=== PATIENT | female | born 1995 | race Asian ===

== ENCOUNTER 2023-02-15 07:30 | Outpatient (RCR) | payer OTHER, SELFPAY ==
--- NOTE | 2023-02-08 14:53 | OT.OP.EVAL ---
Visit Care Team Role Provider Type Joshua You DO Attending Provider Non-Staff Primary Care Provider Referring Provider Specialty: Family Practice Address: [address] [place] [address], [id number] Email: Occupational Therapy Initial Evaluation OT Outpatient Adult Evaluation Start: 02/08/23 10:42 Freq: Status: Active Protocol: Document 02/08/23 10:43 AMS (Rec: 02/08/23 10:46 AMS [id number]) General Information - Adult Plan of Care Dates 02/08/23 - 03/15/23 Insurance Information Prime; EVAL CHARGE ONLY; x 12 visits auth; Visit Start Time 07:40 Visit Stop Time 08:15 Total Visit Minutes 35 Treatment Setting Outpatient Care Note Type Initial Evaluation Referring Physician Joshua You MD Reason for Referral Bilateral wrist pain w/ h/o CTS Identification Confirmed Yes Identification Confirmed By Self Goals Alf Goals 1. Joel Gilmore will be modified independent with execution of distal UE home exercise program. 2. Joel Gilmore will present with improved ability to participate in meaningful activities: 2a. This will be evidenced by obtaining a score of 15.00 or less on the QuickDASH UE Outcome Measure. 2b. This will be evidenced by obtaining a score of 10.00 or less on the QuickDASH UE Work Module. 2c. This will be evidenced by Joel Gilmore indicating 2 or less out of 10 on Pain Assessment Grid relative to distal UEs. 3. Joel Gilmore will present with improved bilateral wrist strength which support participation in meaningful tasks/activities: 3a. 5/5 MMT R wrist flex. 3b. 5/5 MMT L wrist flex. 3c. 5/5 MMT L wrist ext. 3d. 5/[address] 3e. 5/5 MMT L wrist UD. Assessment/Plan Treatment Assessment Joel Gilmore is a 27 year-old right hand dominant female referred to outpatient OT secondary to bilateral wrist pain w/ h/o CTS. Medical History Form was completed w/ no significant history. 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 Reported right handed mouse use and standard computer/ keyboard set-up. QuickDASH UE Outcome Measure Score = 25.00; QuickDASH UE Work Module Score = 18.75. Indication of 5 out of 10 on the Pain Assessment Grid relative to dorsal ulnar surfaces of bilateral wrists. Report of bilateral wrist braces used primarily for compression. AROM Goniometer Measurements were as follows: 0-70 degrees active R wrist flex vs 0-65 degrees active L wrist flex; 0 -65 degrees active R wrist ext vs 0-60 degrees active L wrist ext; 0-15 degrees active R wrist RD vs 0-17 degrees active L wrist RD; 0-30 degrees active R wrist UD vs 0 -30 degrees active L wrist UD. MMT Findings were as follows: 4+/5 MMT R wrist flex vs 3+/ 5 MMT L wrist flex. 5/5 MMT R wrist ext vs 3+/5 MMT L wrist ext; 5/[address] vs 3+/ [address]; 5/5 MMT R wrist UD vs 3+/5 MMT L wrist UD. 36.0# of force R relief captain ( compared to 74.5# +/- 13.9 women 25-29 years of age) vs 37.0# of force L relief captain ( compared to 63.5# +/- 12.2 women 25-29 years of age) w/ dynamometer II strength testing w/ elbow in 90 degrees flexion. 24.0# of force R relief captain vs 32.0# of force L relief captain w/ dynamometer II strength testing w/ elbow in extension. 6.0# of force R lateral pinch (compared to 17.7# +/- 2.1 women 25-29 years of age) vs 6 .0# of force L lateral pinch ( compared to 16.6# +/- 2.1 women 25-29 years of age). 6.0 # of force R 3-jaw pinch ( compared to 17.7# +/- 3.2 women 25-29 years of age) vs 7 .0# of force L 3-jaw pinch ( compared to 17.0# +/- 3.0 women 25-29 years of age). 5.0 # of force R tip pinch ( compared to 11.9# +/- 1.8 women 25-29 years of age) vs 4 .5# of force L tip pinch ( compared to 11.3# +/- 1.8 women 25-29 years of age). (-) bilateral Tinel's test. Report of numbness and tingling of bilateral 3, 4, 5th digits w/ reverse phalen's test. Denial of discomfort w/ tendon glides bilaterally. Outpatient OT is recommended to establish HEP and address environmental/modification techniques/strategies, pain/ discomfort of bilateral wrists , hand/digit/wrist weakness to support Young Ju's ability to successfully complete/engage in meaningful activities in a variety of environments. Home Exercise Program 02/08/23 = Instructed in passive wrist stretches; wrist flex, wrist ext w/ elbow in ext and forearm in supination w/ hold of 20 to 30 seconds. Length of treatment (weeks) 5 Plan of Care Start Date 02/08/23 Plan of Care End Date 03/15/23 Treatment Frequency Once a Week Therapeutic Contents Active Range of Motion, Adaptive Equipment Education, Client Education,Functional Activities,Home Exercise Program,Joint Protection, Manual Therapy,Education,Self- Care,Stretching/Flexibility Activities,Therapeutic Activities,Therapeutic Exercises,Modalities Additional Types of Modalities Heat/Cold Pack/Contrast baths
--- NOTE | 2023-02-15 08:38 | OT.OP.DC ---
Visit Care Team Role Provider Type Joshua You DO Attending Provider Non-Staff Primary Care Provider Referring Provider Address: [address] [place] [address], [id number] Email: OT Outpatient OT Outpatient Adult Evaluation Start: 02/08/23 10:42 Freq: Status: Active Protocol: Document 02/08/23 10:43 AMS (Rec: 02/08/23 10:46 AMS [id number]) General Information - Adult Visit Information Plan of Care Dates 02/08/23 - 03/15/23 Insurance Information Prime; EVAL CHARGE ONLY; x 12 visits auth; Session Time Visit Start Time 07:40 Visit Stop Time 08:15 Total Visit Minutes 35 Setting Treatment Setting Outpatient Care Visit Type Note Type Initial Evaluation Referral Referring Physician Joshua You MD Reason for Referral Bilateral wrist pain w/ h/o CTS Identification Identification Confirmed Yes Identification Confirmed By Self Goals Usp Goals Technical Service Rep Goals 1. Joel Gilmore will be modified independent with execution of distal UE home exercise program. 2. Joel Gilmore will present with improved ability to participate in meaningful activities: 2a. This will be evidenced by obtaining a score of 15.00 or less on the QuickDASH UE Outcome Measure. 2b. This will be evidenced by obtaining a score of 10.00 or less on the QuickDASH UE Work Module. 2c. This will be evidenced by Joel Gilmore indicating 2 or less out of 10 on Pain Assessment Grid relative to distal UEs. 3. Joel Gilmore will present with improved bilateral wrist strength which support participation in meaningful tasks/activities: 3a. 5/5 MMT R wrist flex. 3b. 5/5 MMT L wrist flex. 3c. 5/5 MMT L wrist ext. 3d. 5/[address] 3e. 5/5 MMT L wrist UD. Assessment/Plan Assessment Treatment Assessment Joel Gilmore is a 27 year-old right hand dominant female referred to outpatient OT secondary to bilateral wrist pain w/ h/o CTS. Medical History Form was completed w/ no significant history. 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 Reported right handed mouse use and standard computer/ keyboard set-up. QuickDASH UE Outcome Measure Score = 25.00; QuickDASH UE Work Module Score = 18.75. Indication of 5 out of 10 on the Pain Assessment Grid relative to dorsal ulnar surfaces of bilateral wrists. Report of bilateral wrist braces used primarily for compression. AROM Goniometer Measurements were as follows: 0-70 degrees active R wrist flex vs 0-65 degrees active L wrist flex; 0 -65 degrees active R wrist ext vs 0-60 degrees active L wrist ext; 0-15 degrees active R wrist RD vs 0-17 degrees active L wrist RD; 0-30 degrees active R wrist UD vs 0 -30 degrees active L wrist UD. MMT Findings were as follows: 4+/5 MMT R wrist flex vs 3+/ 5 MMT L wrist flex. 5/5 MMT R wrist ext vs 3+/5 MMT L wrist ext; 5/[address] vs 3+/ [address]; 5/5 MMT R wrist UD vs 3+/5 MMT L wrist UD. 36.0# of force R solar lab technician ( compared to 74.5# +/- 13.9 women 25-29 years of age) vs 37.0# of force L solar lab technician ( compared to 63.5# +/- 12.2 women 25-29 years of age) w/ dynamometer II strength testing w/ elbow in 90 degrees flexion. 24.0# of force R solar lab technician vs 32.0# of force L solar lab technician w/ dynamometer II strength testing w/ elbow in extension. 6.0# of force R lateral pinch (compared to 17.7# +/- 2.1 women 25-29 years of age) vs 6 .0# of force L lateral pinch ( compared to 16.6# +/- 2.1 women 25-29 years of age). 6.0 # of force R 3-jaw pinch ( compared to 17.7# +/- 3.2 women 25-29 years of age) vs 7 .0# of force L 3-jaw pinch ( compared to 17.0# +/- 3.0 women 25-29 years of age). 5.0 # of force R tip pinch ( compared to 11.9# +/- 1.8 women 25-29 years of age) vs 4 .5# of force L tip pinch ( compared to 11.3# +/- 1.8 women 25-29 years of age). (-) bilateral Tinel's test. Report of numbness and tingling of bilateral 3, 4, 5th digits w/ reverse phalen's test. Denial of discomfort w/ tendon glides bilaterally. Outpatient OT is recommended to establish HEP and address environmental/modification techniques/strategies, pain/ discomfort of bilateral wrists , hand/digit/wrist weakness to support Joel Gilmore's ability to successfully complete/engage in meaningful activities in a variety of environments. Home Exercise Program 02/08/23 = Instructed in passive wrist stretches; wrist flex, wrist ext w/ elbow in ext and forearm in supination w/ hold of 20 to 30 seconds. Plan Length of treatment (weeks) 5 Plan of Care Start Date 02/08/23 Plan of Care End Date 03/15/23 Treatment Frequency Once a Week Therapeutic Contents Active Range of Motion, Adaptive Equipment Education, Client Education,Functional Activities,Home Exercise Program,Joint Protection, Manual Therapy,Education,Self- Care,Stretching/Flexibility Activities,Therapeutic Activities,Therapeutic Exercises,Modalities Additional Types of Modalities Heat/Cold Pack/Contrast baths Functional Wrist/Hand Scan Hand Side Sensory Assessment Sensory Profile2 OT Outpatient Treatment Note - Adult Start: 02/08/23 10:42 Freq: Status: Active Protocol: Document 02/15/23 08:26 [facility] (Rec: 02/15/23 08:30 [facility] [id number]) OT Outpatient Adult Treatment Note Session Time Visit Start Time 07:30 Visit Stop Time 08:15 Total Visit Minutes 45 Visit Information Visit Number [id number] Plan of Care Dates 02/08/23 - 03/15/23 Insurance Information Prime; EVAL CHARGE ONLY; x 12 visits auth; Setting Treatment Setting Outpatient Care Visit Type Note Type Treatment Note General Information General Information Joel Gilmore is a 27 year-old right hand dominant female referred to outpatient OT secondary to bilateral wrist pain w/ h/o CTS. Medical History Form was completed w/ no significant history. 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 Reported right handed mouse use and standard computer/ keyboard set-up. QuickDASH UE Outcome Measure Score = 25.00; QuickDASH UE Work Module Score = 18.75. Indication of 5 out of 10 on the Pain Assessment Grid relative to dorsal ulnar surfaces of bilateral wrists. Report of bilateral wrist braces used primarily for compression. AROM Goniometer Measurements were as follows: 0-70 degrees active R wrist flex vs 0-65 degrees active L wrist flex; 0 -65 degrees active R wrist ext vs 0-60 degrees active L wrist ext; 0-15 degrees active R wrist RD vs 0-17 degrees active L wrist RD; 0-30 degrees active R wrist UD vs 0 -30 degrees active L wrist UD. MMT Findings were as follows: 4+/5 MMT R wrist flex vs 3+/ 5 MMT L wrist flex. 5/5 MMT R wrist ext vs 3+/5 MMT L wrist ext; 5/[address] vs 3+/ [address]; 5/5 MMT R wrist UD vs 3+/5 MMT L wrist UD. 36.0# of force R solar lab technician ( compared to 74.5# +/- 13.9 women 25-29 years of age) vs 37.0# of force L solar lab technician ( compared to 63.5# +/- 12.2 women 25-29 years of age) w/ dynamometer II strength testing w/ elbow in 90 degrees flexion. 24.0# of force R solar lab technician vs 32.0# of force L solar lab technician w/ dynamometer II strength testing w/ elbow in extension. 6.0# of force R lateral pinch (compared to 17.7# +/- 2.1 women 25-29 years of age) vs 6 .0# of force L lateral pinch ( compared to 16.6# +/- 2.1 women 25-29 years of age). 6.0 # of force R 3-jaw pinch ( compared to 17.7# +/- 3.2 women 25-29 years of age) vs 7 .0# of force L 3-jaw pinch ( compared to 17.0# +/- 3.0 women 25-29 years of age). 5.0 # of force R tip pinch ( compared to 11.9# +/- 1.8 women 25-29 years of age) vs 4 .5# of force L tip pinch ( compared to 11.3# +/- 1.8 women 25-29 years of age). (-) bilateral Tinel's test. Report of numbness and tingling of bilateral 3, 4, 5th digits w/ reverse phalen's test. Denial of discomfort w/ tendon glides bilaterally. - Subjective Identification Type Name Observations Young verbalized 100% understanding of home exercise program; denied need for additional outpatient treatment appointments. - Objective Objective Measurements Please refer to below for progress towards meeting established OT goals: Technical Service Rep Goals Young Ju will be modified independent with execution of distal UE home exercise program. *MET 02/15/23 D/C GOALS 02/15/23 2. Young Ju will present with improved ability to participate in meaningful activities: 2a. This will be evidenced by obtaining a score of 15.00 or less on the QuickDASH UE Outcome Measure. 2b. This will be evidenced by obtaining a score of 10.00 or less on the QuickDASH UE Work Module. 2c. This will be evidenced by Young Ju indicating 2 or less out of 10 on Pain Assessment Grid relative to distal UEs. 3. Young Ju will present with improved bilateral wrist strength which support participation in meaningful tasks/activities: 3a. 5/5 MMT R wrist flex. 3b. 5/5 MMT L wrist flex. 3c. 5/5 MMT L wrist ext. 3d. 5/[address] 3e. 5/5 MMT L wrist UD. - Exercises 2 Descriptor Wrist strengthening. Wrist flex. TB #3. 3 x 15. Elbow in 90 degrees flex; forearm supported on chair's arm rest. Wrist ext. TB #3. 3 x 15. Elbow in 90 degrees flex; forearm supported on chair's arm rest. Wrist RD. TB #3. 3 x 15. Elbow in 90 degrees flex; forearm supported on chair's arm rest w/ wrist in neutral. Wrist UD. TB #3. 3 x 15. Hand/ forearm supported on TT. Elbow in 90 degrees flex. Stabilization exercise at wall w/ loop w/ TB #3. Box. 2 x 10 . B elbows in ext. 2.2# weighted spherical ball catch; 2 x 15 catch w/ wrist in ext; 2 x 15 catch w/ wrist in flex. 2.2# weighted spherical ball catch; alt forearm supination/ pronation. 2 x 15. 1 Descriptor Passive range of motion of wrist. Wrist/digit ext w/ elbow ext and forearm supination. Hold for 20 seconds. x 1 rep bilaterally. Wrist/digit flex w/ elbow ext and forearm pronation. Hold for 20 seconds. x [address] w/ hand on TT and elbow ext. Hold for 20 seconds . x 1 rep bilaterally. Wrist UD w/ hand on TT and elbow ext. Hold for 20 seconds . x 1 rep bilaterally. Alt w/ forearm in neutral --> discomfort R wrist ulnarly. - Assessment Assessment of Improvement Joel was provided w/ personal TB #3 for home use for execution of bilateral wrist strengthening for home exercise program; recommendation/instruction in strengthening wrist ext, wrist flex, wrist RD, wrist UD w/ use of TB, completing 3 x 15. Reviewed bilateral wrist stretches, and instructed in passive wrist RD/UD. Joel denied questions and verbalized readiness for d/c to HEP. - Plan Therapy Recommendations Discharge to Home Exercise Program,Discharge from Occupational Therapy
== END 2023-02-16 16:33 | disposition home or self-care (01) ==
LOC: OT 07:30
PROVIDERS: PCP Student in an Organized Health Care Education/Training Program; Referring Provider Student in an Organized Health Care Education/Training Program; Visit Provider Student in an Organized Health Care Education/Training Program
DX: G56.00 Carpal tunnel syndrome, unspecified upper limb (principal); M25.539 Pain in unspecified wrist; R53.1 Weakness
CPT/HCPCS: 97110; 97165